=== PATIENT | male | born 1980 | race Caucasian/White ===

== ENCOUNTER 2017-04-22 21:42 | Inpatient (IN) | payer OTHER ==
[~2017-04-22] VITALS: Ht 177.8 cm; Wt 86.0 kg
[2017-04-22 22:36] LABS: MEAN CORPUSCULAR HEMOGLOBIN 29.4 pg (27.0-33.0); MEAN CORPUSCULAR HGB CONC 34.6 g/dl (32.0-36.5); RED CELL DISTRIBUTION WIDTH 12.7 % (11.5-14.5); WHITE BLOOD COUNT 12.1 K/mm3 (4.0-10.0)
[2017-04-22 23:11] LABS: ALBUMIN 3.8 GM/DL (3.2-5.2); ALBUMIN/GLOBULIN RATIO 1.31 (1.00-1.93); ALKALINE PHOSPHATASE 80 U/L (45-117); ALT/SGPT 68 U/L (12-78); ANION GAP 7 MEQ/L (8-16); AST/SGOT 23 U/L (15-37); BILIRUBIN,DIRECT < 0.1 MG/DL (0.0-0.2); BILIRUBIN,TOTAL 0.2 MG/DL (0.2-1.0); BLOOD UREA NITROGEN 14 MG/DL (7-18); CALCIUM LEVEL 8.8 MG/DL (8.5-10.1); CARBON DIOXIDE LEVEL 31 MEQ/L (21-32); CHLORIDE LEVEL 104 MEQ/L (98-107); CREATININE FOR GFR 0.88 MG/DL (0.70-1.30); GLOMERULAR FILTRATION RATE > 60.0 (>60); GLUCOSE, FASTING 96 MG/DL (70-105); POTASSIUM SERUM 3.9 MEQ/L (3.5-5.1); SODIUM LEVEL 142 MEQ/L (136-145); TOTAL PROTEIN 6.7 GM/DL (6.4-8.2)
[2017-04-22] MEDS ORDERED: FISH100049 PO (23:35)
[2017-04-22] MEDS ORDERED: VITA500T PO (23:35)
[2017-04-22] MEDS ORDERED: PRED10TA2 PO (23:35)
[2017-04-22] MEDS ORDERED: MAXA10TA15 PO (23:35)
[2017-04-22] MEDS ORDERED: LIDO5DIS41 TD (23:35)
[2017-04-22] MEDS ORDERED: VITA500T53 PO (23:35)
[2017-04-22] MEDS ORDERED: NATU400T PO (23:35)
[2017-04-22] MEDS ORDERED: ZONE1CAP PO (23:35)
[2017-04-22] MEDS ORDERED: VITA100066 PO (23:35)
[2017-04-23] MEDS ORDERED: MAALOX 30 ML SUSP *UDC PO PRN (00:15)
[2017-04-23] MEDS ORDERED: traZODone 50 MG TAB PO PRN (00:15)
[2017-04-23] MEDS ORDERED: MOM 30ML SUSPENSION UDC PO PRN (00:15)
[2017-04-23 00:41] LABS: METHADONE URINE NEGATIVE (NEGATIVE)
[2017-04-23 02:07] VITALS: BP 127/83
[2017-04-23 06:35] VITALS: BP 116/60
--- NOTE | 2017-04-23 08:53 | HPEPDOC ---
Medical History and Physical Date of Admission Apr 23, 2017 at 00:17 History and Physical PCP: [facility] ATTENDING: Dr. Mark Blair HPI: 36yoM admitted to [facility] for unspecified depressive disorder, being medically examined today. Pt states he "scraped" his arms b/l, later states he used a piece off metal. Denies any fevers, chills, weakness, fatigue, RUIZ, CP, SOB, cough, palpitations, abdominal pain, N/V/D or changes in bowel or bladder habits. PMHx: Migraine RUIZ. Follows with TBI clinic [facility]. Follows with [facility]. depression self mutilation PSHX: denies SOCHX: Resides in: [facility], from [facility]. Marital Status: Kids: 5 Employment: Active duty Tobacco use: denies ETOH: denies Illicit Drugs: Denies IV Drug Use: Denies Tattoos done unprofessionally: Denies FAMHX: Mother: Alive, h/o Lyme disease Father: Alive, well Siblings: Alive, well Children: Alive, well Unexpected deaths due to medical reasons: None. ROS: As noted in HPI, otherwise 11pt ROS of systems reviewed and unremarkable. PE: GEN: 36yoM, appears stated age. Well-nourished, well developed. No acute distress. Alert and oriented x 3. Pleasant, interactive. HEENT: Normocephalic, atraumatic. Pupils are equal, round, and reactive to light. Extraocular movements are intact. No nystagmus appreciated. Sclera are nonicteric. Conjunctiva without injection. Nose midline. Nasal turbinates without bogginess. EACs both patent BL. TMs both visualized and monae with good cone of light, no bulging or erythema. No facial asymmetry. Moist mucous membranes. Dentition fair. Pharynx pink and moist, no cobblestoning. Neck supple , trachea midline. No lymphadenopathy or thyromegaly appreciated. CHEST: Regular rate and rhythm, +S1, +S2 LUNGS: Clear to auscultation bilaterally. No wheezes, rales, or rhonchi. Breathing appears symmetric and easy. Patient is speaking in full sentences. No accessory muscle use. ABD: Round, soft, non-tender, non-distended. +Bowel sounds throughout. No rebound or guarding. No costovertebral angle tenderness. EXT: Pulses 2+ bilaterally dorsalis pedis and radial. No lower extremity edema appreciated. SKIN: [place], dry, warm. Capillary refill <2sec. No rashes. B/L forearm lacerations noted in various stages of healing. NEURO: Alert and oriented x 3. Cranial nerves III-XII are intact. No focal deficits appreciated. EKG: pending. A&P: 36yoM admitted to [facility] for unspecified depressive disorder 1. Psych. Plan per Psychiatry. Obtain baseline EKG to assure the safety of psychiatric medications as they can prolong the QT interval. 2. B/L forearm lacerations. Apply bacitracin if needed. Pt states received Td within past 1 year through the . Will confirm Immunization UTD. 3. Follow up with PCP on discharge. 5. Mild leukocytosis. Pt afebrile. Asymptomatic. Recheck CBC in AM. 6. Staff member Jama present throughout exam. Vital Signs Vital Signs Date Time Temp Pulse Resp B/P (MAP) Pulse Ox O2 Delivery O2 Flow Rate FiO2 04/23/17 06:35 98.6 64 18 116/60 (78) 04/23/17 02:07 98 Room Air Laboratory Data Labs 24H Laboratory Tests 2 04/22/17 22:31: Anion Gap 7L, Glomerular Filtration Rate > 60.0, Calcium Level 8.8, Aspartate Amino Transf (AST/SGOT) 23, Alanine Aminotransferase (ALT/SGPT) 68, Alkaline Phosphatase 80, Total Bilirubin 0.2, Direct Bilirubin < 0.1, Total Protein 6.7, Albumin 3.8, Albumin/Globulin Ratio 1.31, Thyroid Stimulating Hormone (TSH) 1.620, Salicylates Level < 1.7L, Acetaminophen Level < 2.0L, Ethyl Alcohol Level < 0.003 04/22/17 23:59: Urine Amphetamines Screen NEGATIVE, Urine Benzodiazepines Screen NEGATIVE, Urine Opiates Screen NEGATIVE, Urine Methadone Screen NEGATIVE, Urine Barbiturates Screen NEGATIVE, Urine Phencyclidine Screen NEGATIVE, Urine Cocaine Metabolite Screen NEGATIVE, Urine Cannabinoids Screen NEGATIVE CBC/BMP Laboratory Tests 04/22/17 22:31 Red Blood Count 4.94, Mean Corpuscular Volume 85.0, Mean Corpuscular Hemoglobin 29.4, Mean Corpuscular Hemoglobin Concent 34.6, Red Cell Distribution Width 12.7 Home Medications Scheduled Alpha Tocopheryl Acid Succinat (Vitamin E) 400 Unit Tab, 400 UNIT PO DAILY Ascorbic Acid (Vitamin C) 500 Mg Tab, 500 MG PO DAILY Cholecalciferol (Vitamin D) 1,000 Unit Tab, 1,000 UNIT PO DAILY Cyanocobalamin (Vitamin B12) 500 Mcg Tab, 500 MCG PO DAILY Fish Oil (Fish Oil 1000 mg) 1 Cap Cap, 1 CAP PO DAILY Lidocaine (Lidoderm) 5 % Dis, 1 PATCH TD DAILY Zonisamide (Zonegran) 100 Mg Cap, 100 MG PO QHS Scheduled PRN Rizatriptan Benzoate (Maxalt-Diamond Finishing Supervisor) 10 Mg Tab, 10 MG PO DAILYPRN PRN for MIGRAINE Allergies Coded Allergies: Penicillins (Verified Allergy, Unknown, 04/22/17) Angella Bunn Apr 23, 2017 08:53
[2017-04-23] MEDS: ACETAMINOPHEN TAB 650MG DOSE (2X325MG) PO PRN (11:10)
[2017-04-23] MEDS: BACITRACIN OINT 30GM TOP SCH (13:28)
[2017-04-23] MEDS: NICOTINE POLACRILEX 2 MG GUM PO PRN ×4 (13:28→22:07)
[2017-04-23] MEDS ORDERED: RIZATRIPTAN MLT 10 MG TAB PO PRN (16:45)
[2017-04-23 18:00] VITALS: BP 122/58
--- NOTE | 2017-04-23 19:31 | ECGEPIP ---
Stationary ECG Study [facility] Test Date: 2017-04-23 Pat Name: MAKAYLA DAVISON Department: Room: [place] [address] Gender: M Button Spindler: : 1980 Requested By: Angella Bunn Order Number: [id number] Reading MD: Clyde Guzman Measurements Intervals [place] Rate: 63 P: 53 DC: 151 QRS: 3 QRSD: 89 T: 24 QT: 409 QTc: 420 Interpretive Statements Normal sinus rhythm. Somewhat prominent R wave in V2 and V3; Possibly normal variant. Rule out RVH versus prior PWMI No prior tracing for comparison Electronically Signed On 04-23-2017 19:31:43 EDT by Clyde Guzman
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
[2017-04-24 06:38] VITALS: BP 118/63
[2017-04-24] MEDS: NICOTINE POLACRILEX 2 MG GUM PO PRN ×7 (06:59→23:15)
[2017-04-24 08:30] LABS: MEAN CORPUSCULAR HEMOGLOBIN 29.4 pg (27.0-33.0); MEAN CORPUSCULAR HGB CONC 34.1 g/dl (32.0-36.5); MEAN CORPUSCULAR VOLUME 86.2 fl (80.0-96.0); RED CELL DISTRIBUTION WIDTH 12.8 % (11.5-14.5); WHITE BLOOD COUNT 8.6 K/mm3 (4.0-10.0)
[2017-04-24] MEDS: BACITRACIN OINT 30GM TOP SCH (08:33)
[2017-04-24 18:00] VITALS: BP 120/69
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
[2017-04-25 06:59] VITALS: BP 130/63
[2017-04-25] MEDS: NICOTINE POLACRILEX 2 MG GUM PO PRN ×2 (08:13→10:18)
[2017-04-25] MEDS: ACETAMINOPHEN TAB 650MG DOSE (2X325MG) PO PRN (08:13)
[2017-04-25] MEDS: BACITRACIN OINT 30GM TOP SCH (09:00)
[2017-04-25] MEDS ORDERED: MAXA10TA15 PO (09:34)
[2017-04-25] MEDS ORDERED: NICO2GUM62 PO (09:34)
[2017-04-25] MEDS ORDERED: TRAZO50TA PO (09:34)
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
== END 2017-04-25 10:30 | disposition home or self-care (01) | DRG 882 ==
LOC: M ED 21:42 → EDBD 21:42 → M ED INP 04-23 00:17 → M PSY 04-23 01:00
PROVIDERS: ADMIT Psychiatry & Neurology Psychiatry; ATTEND Psychiatry & Neurology Psychiatry
DX: F43.25 Adjustment disorder with mixed disturbance of emotions and conduct (principal); Z79.899 Other long term (current) drug therapy; Z88.0 Allergy status to penicillin; Z91.5 Personal history of self-harm; G43.909 Migraine, unspecified, not intractable, without status migrainosus; M54.5 Low back pain; S51.812A Laceration without foreign body of left forearm, initial encounter; S51.811A Laceration without foreign body of right forearm, initial encounter; X78.9XXA Intentional self-harm by unspecified sharp object, initial encounter; Y92.9 Unspecified place or not applicable; Y93.9 Activity, unspecified; Y99.9 Unspecified external cause status

== ENCOUNTER → 2018-10-29 | Outpatient (CLI) | payer OTHER, SELFPAY ==
[~2018-10-29] MED LIST: FISH100049 PO; LIDO5DIS41 TD; MAXA10TA15 PO; NATU400T PO; NICO2GUM62 PO; PRED10TA2 PO; TRAZO50TA PO; VITA100066 PO; VITA500T PO; VITA500T53 PO; ZONE1CAP PO
--- NOTE | 2018-11-04 14:48 | REP ---
Right hand four views History: Injury There is a nondisplaced fracture of the base of the 4th metacarpal. There is no dislocation. The joint spaces are normal in appearance. Impression: Nondisplaced fracture of the base of the 4th metacarpal. Electronically Signed by Clifford Vela MD 11/04/2018 02:40 P
== END ==
LOC: M LRY 18:07
PROVIDERS: ATTEND Physician Assistant
DX: S62.344A Nondisplaced fracture of base of fourth metacarpal bone, right hand, initial encounter for closed fracture (principal); X58.XXXA Exposure to other specified factors, initial encounter; Y92.9 Unspecified place or not applicable; Y93.9 Activity, unspecified; Y99.9 Unspecified external cause status